=== PATIENT | male | born 1985 | race Caucasian/White ===

== ENCOUNTER 2022-02-05 10:23 | Emergency (ER) | payer OTHER, SELFPAY ==
[2022-02-05 10:37] VITALS: BP 142/94; PULSE 117; RESP 16; TEMP 37.2; O2SAT 100
--- NOTE | 2022-02-05 11:51 | ED.GENADULT ---
HPI - General Adult General Chief complaint: Abdominal Pain Stated complaint: Abdominal Pain Time Seen by Provider: 02/05/22 11:39 Source: patient Mode of arrival: ambulatory Limitations: no limitations History of Present Illness HPI narrative: Patient presents today requesting testing for sexually transmitted infections. States that 2 weeks ago he was in a jhony potty at work. States he went to sit on the stool and sat on some ejaculate and the tip of his penis had contact with the ejaculate, before he realized. He believes he has contracted a sexually transmitted infection from this ejaculate and is requesting testing. He denies dysuria, hematuria, penile discharge, testicular pain or swelling, any skin lesions. He reports that his penis gets, hot , especially when he sweats. He is also reporting a 3-day history of intermittent abdominal cramping with 1 day of diarrhea. Related Data Allergies Allergy/AdvReac Type Severity Reaction Status Date / Time No Known Allergies Allergy Verified 02/05/22 10:53 Review of Systems Review of Systems: CONSTITUTIONAL: Denies body aches, fever, chills, or sweats. EYES: Denies visual changes, redness, or discharge. ENT: Denies rhinorrhea, congestion, sore throat, or otalgia. CARDIOVASCULAR: Denies chest pain, palpitations, or edema. RESPIRATORY: Denies cough or dyspnea. GASTROINTESTINAL: Denies abdominal pain, nausea, vomiting. + Abdominal cramping, diarrhea GENITOURINARY: Denies dysuria or hematuria. SKIN: Denies rash, itching, or wounds. MUSCULOSKELETAL: Denies back pain, joint pain, or myalgia. NEUROLOGIC: Denies headache, numbness, tingling, or weakness. PSYCH: Denies depression or anxiety. PMFSH Comments At time of signature, I have reviewed and agree with nursing past medical, surgical, social and family history unless otherwise noted. Please see nursing chart for further information. There is no relevant family history pertinent to the presenting complaint Exam Narrative: GENERAL: Well-appearing, well-nourished, and in no acute distress. HEAD: Normocephalic, atraumatic. EYES: EOMI. No redness or drainage. Conjunctivae normal. ENT: Mucous membranes pink and moist. NECK: Normal AROM. CHEST: No respiratory distress. Clear to auscultation. HEART: Regular rate and rhythm. No murmur appreciated. Normal peripheral pulses. ABDOMEN: Soft, nontender, nondistended, normal active bowel sounds. MUSCULOSKELETAL: No bony tenderness. EXTREMITIES: Normal range of motion. No edema. SKIN: Warm, dry, no rash. Capillary refill normal. Normal skin turgor. NEURO: No focal deficits. Alert and oriented x3. Gait steady. PSYCH: Normal affect. No signs of depression or anxiety. Course Course Emergency Course: I have discussed with patient that what he is describing is an unlikely scenario for vincent an STI, but he is adamant that he would like tested and treated today, and that he also has no sx consistent with STI. Level of Care: Express Care Visit Vital Signs Vital signs: Vital Signs Temperature 99.0 F 02/05/22 10:37 Pulse Rate 117 H 02/05/22 10:37 Respiratory Rate 16 02/05/22 10:37 Blood Pressure 142/94 H 02/05/22 10:37 Pulse Oximetry 100 02/05/22 10:37 Oxygen Delivery Room Air 02/05/22 10:37 Temperature 99.0 F 02/05/22 10:37 Pulse Rate 117 H 02/05/22 10:37 Respiratory Rate 16 02/05/22 10:37 Blood Pressure 142/94 H 02/05/22 10:37 Pulse Oximetry 100 02/05/22 10:37 Oxygen Delivery Room Air 02/05/22 10:37 Reviewed. Pt has been instructed to follow up with his PCP regarding his elevated blood pressure today. Medical Decision Making Differential Diagnosis Differential Diagnosis: Gastroenteritis, viral syndrome, UTI, dehydration Vital Signs Vital Signs: Vital Signs Temperature 99.0 F 02/05/22 10:37 Pulse Rate 117 H 02/05/22 10:37 Respiratory Rate 16 02/05/22 10:37 Blood Pressure 142/94 H 02/05/22 10:37 Pulse Oximetry 100
[2022-02-05] MEDS: cefTRIAXone 500 MG, LIDOCAINE HCL 1% LOCAL INJ 1 ML IM (12:01)
== END 2022-02-05 12:16 | disposition home or self-care (01) ==
PROVIDERS: Emergency Provider Nurse Practitioner; PCP Family Medicine
DX: B34.9 Viral infection, unspecified (principal); E86.0 Dehydration
CPT/HCPCS: 81003; 87491; 87591; 87661; 96372; 99203; G0463; J0696